=== PATIENT | female | born 1970 | race Caucasian/White ===

== ENCOUNTER → 2018-03-18 | Outpatient (CLI) | payer BC ==
--- NOTE | 2018-03-18 16:59 | KCIC ---
MR of the right knee Indication: Right knee pain, progressing in recent months. Pain with activity. Swelling after working out. Comparison: None are available. Technique: The standard multiplanar sequences are obtained. FINDINGS: Artifact: No significant image degradation. Medial meniscus: Radial tear at the posterior horn, measures 4 mm wide. Lateral meniscus: Very mild linear signal within the peripheral posterior horn of the lateral meniscus, appears to arise from the inferior fascicle attachment, compatible with a very small peripheral tear. Anterior cruciate ligament: Intact. Posterior cruciate ligament: Intact Medial collateral ligament: Intact. Lateral structures: * Iliotibial band: Intact. * Lateral collateral ligament: Intact. * Biceps femoris tendon: Intact * Popliteus tendon attachment: Intact Extensive mechanism: * Patellar tendon: Intact * Quadriceps tendon: Intact * Retinacular structures: Intact Fluid: Small joint effusion. Trace Patel's cyst. Intra-articular bodies: None visualized Joint compartments * patellofemoral joint: Moderate chondromalacia. * medial compartment: Moderate chondromalacia of the medial femoral condyle. * lateral compartment:Intact Bones: No significant lesion or acute fracture. Soft tissue: Unremarkable Impression: 1. Radial tear posterior horn medial meniscus 2. Very small peripheral tear at the posterior horn of the lateral meniscus, at the inferior vesicle, with linear morphology. Electronically signed by: Mukund Moura MD (03/18/2018 4:55 PM) [id number]
== END | disposition home or self-care (01) ==
LOC: KCIC MRI 16:04
PROVIDERS: ATTEND Physician Assistant Medical
DX: S83.241A Other tear of medial meniscus, current injury, right knee, initial encounter (principal); S83.281A Other tear of lateral meniscus, current injury, right knee, initial encounter; M25.461 Effusion, right knee; M22.41 Chondromalacia patellae, right knee; X58.XXXA Exposure to other specified factors, initial encounter; Y93.89 Activity, other specified; Y92.89 Other specified places as the place of occurrence of the external cause; Y99.8 Other external cause status
CPT/HCPCS: 73721

== ENCOUNTER → 2018-04-29 | Day surgery (SDC) | payer BC ==
[~2018-04-29] MED LIST: BUPIVAC MPF-EPI 0.5%-1:200000 30 ML VIAL. ONE; CALC-52 PO; DEXAMETHASONE SOD PHOS 20 MG/5 ML VIAL. ONE; DIVA250T PO; FAMOTIDINE 20 MG/2 ML VIAL ONE; HYDR-3165 PO; HYDROcodone/APAP 7.5/325MG 1 TAB TABLET PO ONE; HYDROmorphone 2 MG/ML VIAL IV PRN; IV RINGERS,LACTATED 1000ML 1,000 ML IV SCH; KETOROLAC 30 MG/ML INJ FOR OR. INJ ONE; LEVO88TA4 PO; LIDOCAINE 1% PF 2 ML VIAL. ID PRN; LIDOCAINE 2% PF Vial for OR 5 ML VIAL. ONE; MIDAZOLAM HCL/PF 2 MG/2 ML VIAL. ONE; MORPHINE SULFATE 4 MG/ML VIAL. IV PRN; MULT1TAB52 PO; OMEP40CA5 PO; ONDANSETRON PF 4 MG/2 ML VIAL. IV PRN; ONDANSETRON PF 4 MG/2 ML VIAL. ONE; PROCHLORPERAZINE 10 MG/2 ML VIAL. IV PRN; PROPOFOL 20 ML IV ONE; SEVOFLURANE 31 TO 60 MINUTES. IH ONE; fentaNYL PF VIAL 100 MCG/2 ML VIAL IV PRN; fentaNYL PF VIAL 100 MCG/2 ML VIAL ONE
--- NOTE | 2018-04-29 07:22 | DISCH ---
DISCHARGE INSTRUCTIONS Condition on Discharge Condition on Discharge: Stable Activity After Discharge Activity Instructions for Disc: Other, see below (we'll advance toward normal activities as symptomatically tolerated) Weight Bearing Status after Di: As tolerated Diet after Discharge Diet after Discharge: Regular Wound Incision Care Wound/Incision Care: Change dressing (remove dressing after 2 days may then shower, no soaking until sutures removed), Other, see below (report any redness drainage fever or chills, severe swelling calf tenderness) Contacting the DR. after DC Call your doctor for: Concerns you may have Follow-Up Follow up with: Wilbur 10 days TEMITOPE JAMES MD Apr 29, 2018 07:22
[2018-04-29 07:35] LABS: U PREG PATIENT NEGATIVE (NEG)
--- NOTE | 2018-04-29 08:23 | PDOC4 ---
Operative Note Operative Note Date of surgery: 04/29/2018 Preoperative diagnosis: Medial meniscus tear right knee Postoperative diagnosis: Same plus chondral flap tear medial femoral condyle weightbearing surface and grade 3 chondromalacia central facet patella Operative procedure: Right knee arthroscopy partial medial meniscectomy chondroplasty medial femoral condyle and patella Surgeon: Wilbur Anesthesia: Gen. Estimated blood loss: 5 mL Complications: None Operative indications: Patient is a 48-year-old female with pain swelling and mechanical symptoms in her right knee as detailed in my preoperative clinic note. We had discussed the significance of her meniscus tear anatomically possibility of ongoing nonoperative treatment versus operative treatment of the meniscus tear the unlikelihood of it healing due to blood supply issues and the risks benefits postoperative course of operative treatment. She is specifically aware that I cannot do anything about [id number] changes in the knee other than clean up loose cartilage that is likely to break off and cause future problems. Pain associated with arthritic symptoms would have to be dealt with on an ongoing symptomatic basis. We also discussed possibility of infection nerve or blood vessel damage continued pain medical or other anesthetic consultations among others all her questions were answered she wishes to proceed with surgical evaluation and treatment. Operative text: Patient was identified procedure verified patient placed in the supine position on the operating table. After adequate amounts of general anesthesia were administered the right lower extremity was prepped and draped in standard sterile fashion with a thigh tourniquet. After timeout was performed patient procedure identified and verified the right leg was exsanguinated by Esmarch bandage tourniquet inflated to 300 mmHg a lateral portal was established a medial portal established using spinal needle localization and the knee joint was systematically examined. She was found to have grade 3 chondromalacia of the central facet of the patella which was trimmed back to stable tissue with arthroscopic shaver no loose bodies were noted in the gutters or suprapatellar pouch. In the medial compartment she was noted to have a radial tear of the posterior horn medial meniscus extending about 50-60% through the substance of the meniscus. Meniscus was trimmed back to stable tissue and radiused appropriately to avoid any stress risers. She was noted also to have a chondral flap tear of the medial femoral condyle probably about 7-8 mm in its anterior posterior dimension and about 14-15 mm medial lateral dimension and was trimmed back to stable edge of cartilage tissue. The defect was not full-thickness. ACL was probed and found to be intact as was the lateral meniscus and the lateral compartment noted to be free from any chondromalacia. The knee was again toured to ensure no loose bodies were present arthroscopic fluid was drained portals closed with nylon suture a total of about 20 mL of half percent plain Marcaine were infused into the fat pad and incision sites sterile dressings were then placed toes were noted be warm pink find deflation of tourniquet after total tourniquet time approximately 20 minutes patient was returned to recovery room stable condition having tolerated procedure well TEMITOPE JAMES MD Apr 29, 2018 08:23
[2018-04-29 09:05] VITALS: BP 115/66
== END | disposition home or self-care (01) ==
LOC: SURG 06:10
PROVIDERS: ATTEND Orthopaedic Surgery
DX: S83.241A Other tear of medial meniscus, current injury, right knee, initial encounter (principal); E55.9 Vitamin D deficiency, unspecified; F31.9 Bipolar disorder, unspecified; E03.9 Hypothyroidism, unspecified; J30.9 Allergic rhinitis, unspecified; E34.9 Endocrine disorder, unspecified; E78.5 Hyperlipidemia, unspecified; R63.5 Abnormal weight gain; M19.90 Unspecified osteoarthritis, unspecified site; Z98.84 Bariatric surgery status; Z98.890 Other specified postprocedural states; Z79.899 Other long term (current) drug therapy; Z68.29 Body mass index [BMI] 29.0-29.9, adult; X58.XXXA Exposure to other specified factors, initial encounter; Y93.89 Activity, other specified; Y92.89 Other specified places as the place of occurrence of the external cause; Y99.8 Other external cause status; Z91.018 Allergy to other foods
CPT/HCPCS: 29881; 81025; 97161; A7015; C1782; J0696; J1100; J1885; J2001; J2250; J2405; J2704; J3010; J3490; J0690

== ENCOUNTER → 2018-09-16 | Outpatient (CLI) | payer BC ==
[2018-04-29 09:05] VITALS: BP 115/66
[~2018-09-16] MED LIST changes: -BUPIVAC MPF-EPI 0.5%-1:200000 30 ML VIAL. ONE; -DEXAMETHASONE SOD PHOS 20 MG/5 ML VIAL. ONE; -FAMOTIDINE 20 MG/2 ML VIAL ONE; -HYDROcodone/APAP 7.5/325MG 1 TAB TABLET PO ONE; -HYDROmorphone 2 MG/ML VIAL IV PRN; -IV RINGERS,LACTATED 1000ML 1,000 ML IV SCH; -KETOROLAC 30 MG/ML INJ FOR OR. INJ ONE; -LIDOCAINE 1% PF 2 ML VIAL. ID PRN; -LIDOCAINE 2% PF Vial for OR 5 ML VIAL. ONE; -MIDAZOLAM HCL/PF 2 MG/2 ML VIAL. ONE; -MORPHINE SULFATE 4 MG/ML VIAL. IV PRN; -ONDANSETRON PF 4 MG/2 ML VIAL. IV PRN; -ONDANSETRON PF 4 MG/2 ML VIAL. ONE; -PROCHLORPERAZINE 10 MG/2 ML VIAL. IV PRN; -PROPOFOL 20 ML IV ONE; -SEVOFLURANE 31 TO 60 MINUTES. IH ONE; -fentaNYL PF VIAL 100 MCG/2 ML VIAL IV PRN; -fentaNYL PF VIAL 100 MCG/2 ML VIAL ONE
--- NOTE | 2018-09-16 09:16 | RAD ---
EXAM: PELVIC ULTRASOUND. HISTORY: Menorrhagia, ovarian cyst. COMPARISON: None. FINDINGS: Sonographic evaluation of the pelvis was performed transabdominally and transvaginally. The uterus is anteverted and measures 10.2 x 6.5 x 5.0 cm. The endometrial stripe measures 15 mm. A hypoechoic nodular focus in the endometrium in the fundus measures 7 x 5 mm. No internal perfusion is seen. There is no significant free fluid. The right ovary measures 2.7 x 2.0 x 1.3 cm. The left ovary measures 3.1 x 2.5 x 1.7 cm. There is normal Doppler flow bilaterally. There are no suspicious lesions. IMPRESSION: 1. 7 mm hypoechoic nodule within the endometrium. This may be a complicated endometrial cyst or polyp. Follow-up or hysteroscopy is recommended. Electronically signed by: Kd Caputo MD (09/16/2018 9:13 AM) [facility]
== END | disposition home or self-care (01) ==
LOC: US 07:09
PROVIDERS: ATTEND Psychiatry & Neurology Child & Adolescent Psychiatry
DX: N92.0 Excessive and frequent menstruation with regular cycle (principal); N83.209 Unspecified ovarian cyst, unspecified side
CPT/HCPCS: 76856